=== PATIENT | female | born 1980 | race African-American/Black ===

== ENCOUNTER 2019-06-13 15:16 | Emergency (ER) | payer SELFPAY ==
[~2019-06-13] VITALS: Ht 157.5 cm; Wt 72.6 kg
[2019-06-13 15:18] VITALS: BP 134/84
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
[2019-06-13] MEDS ORDERED: DiphenhydrAMINE 50mg/ml Inj IM ONE (16:15)
[2019-06-13] MEDS ORDERED: Haloperidol 5mg/ml Inj IM ONE (16:15)
[2019-06-13 17:06] LABS: APPEARANCE,URINE TURBID; BILIRUBIN, URINE NEGATIVE (NEGATIVE); GLUCOSE, URINE (UA) NEGATIVE (NEGATIVE); KETONES,URINE 1+ (NEGATIVE); LEUKOCYTE ESTERASE ,URINE NEGATIVE (NEGATIVE); NITRITE,URINE NEGATIVE (NEGATIVE); PH,URINE 8 (4.5-8.0); PROTEIN,URINE 3+ (NEGATIVE); UROBILINOGEN,URINE NORMAL MG/DL (0.0-1.0)
[2019-06-13 17:08] LABS: COLOR,URINE YELLOW
[2019-06-13 19:20] VITALS: BP 134/84
--- NOTE | 2019-06-13 19:20 | NUR ---
ED Nurse Note: Pt cleared by ERMD for discharge. DC instructions was given and explained to pt and verbalized understanding of teachings. All medical deviecs such as ID band removed. Pt is AAO x4, ambulatory and left with all personal belongings. Pt was offered a placement but refused. Snacks and weather appropriate clothes are provided
== END 2019-06-13 19:20 | disposition home or self-care (01) ==
LOC: EDBD 15:16 → EMR 17:20
DX: Z04.71 Encounter for examination and observation following alleged adult physical abuse (principal); F12.10 Cannabis abuse, uncomplicated; F15.10 Other stimulant abuse, uncomplicated; F16.10 Hallucinogen abuse, uncomplicated; Z88.1 Allergy status to other antibiotic agents
CPT/HCPCS: 80307; 81003; 81025; 87086; 87181; 96372; 99283; J1200; J1630

== ENCOUNTER 2020-05-26 22:53 | Emergency (ER) | payer MEDICAID ==
[~2020-05-26] VITALS: Ht 167.6 cm; Wt 99.8 kg
[2020-05-26 22:56] VITALS: BP 141/95
[2020-05-26 23:00] VITALS: BP 135/90
--- NOTE | 2020-05-26 23:10 | NUR ---
ED Nurse Note: PT walked in from home, walks with a steady gait, vitals are stable on RA. Pt is axox4 but is exhibiting very bizzare behavior. She is co bilateral foot pain and blisters. her feet are dry on assesment. She took off both shoes and threw them in the garbage and is demanding new shoes. She took off her clothes and asked the RN to throw them away. When the RN asked why, she said lawandaaue they were dirty. She is looking through all the drawers in the room. Will continue plan of care.
[2020-05-26] MEDS ORDERED: CLOTRIMAZOLE15 GM TOPIC (23:13)
--- NOTE | 2020-05-26 23:15 | NUR ---
ED Nurse Note: Gave pt clothes appropriate for the weather. Gave rosi cevallos MD
--- NOTE | 2020-05-26 23:18 | NUR ---
ER DISCHARGE NOTE: Patient is cleared to be discharged per ERMD, pt is aox4, on room air, with stable vital signs. pt was given dc and prescription instructions, pt was able to verbalize understanding, pt id band removed. pt is able to ambulate with steady gait. pt took all belongings.
--- NOTE | 2020-05-26 23:38 | Emergency Room Report ---
History of Present Illness General Chief Complaint: General Complaint Source: Patient Present Illness HPI Patient is a 39-year-old female presents for bilateral foot itchiness. Reports having some increased discoloration to her toes. Had been using topical iodine to the area. Denies any fever. States is been present for several years. No recent trauma. Denies any past medical history. 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 COVID-19 Screening: Negative COVID-19 COVID-19 Testing Source: [facility] Patient History Past Medical History: see triage record Now: No Reviewed Nursing Documentation: PMH: Agreed; PSxH: Agreed Nursing Documentation-PMH Past Medical History: No Stated History Review of Systems All Other Systems: negative except mentioned in HPI Physical Exam Vital Signs Date Time Temp Pulse Resp B/P (MAP) Pulse Ox O2 Delivery O2 Flow Rate FiO2 05/26/20 22:56 98.2 98 20 141/95 (110) 98 Room Air General Appearance: well appearing, no apparent distress, alert, GCS 15, obese Head: normocephalic, atraumatic ENT: hearing grossly normal, normal voice Neck: full range of motion, supple Respiratory: lungs clear, normal breath sounds, no respiratory distress, speaking full sentences Gastrointestinal: normal inspection Musculoskeletal: normal inspection, normal range of motion Neurologic: alert, motor strength/tone normal, retail worker III-XII nml as tested, oriented x3, normal gait Psychiatric: normal inspection, mood/affect normal Skin: other - Increased skin thickening and rash to both feet slight yellowing of the toenails. Medical Decision Making Diagnostic Impression: Primary Impression: Tinea pedis ER Course Patient presented for bilateral foot pain. Differential diagnosis include was not limited to fungal infection, eczema, contact dermatitis among others. Patient has a benign exam and does not appear to require any imaging or laboratory testing at this time. Patient's exam is consistent with a fungal infection. Patient is given prescription for topical antifungal medications. Does not appear to have any need for acute intervention in the emergency department. She was given return precautions. She advised to return if worse. The patient is advised to follow up with primary care doctor in 1-2 days. Patient is advised to return if any worsening condition or if any changes in status that are concerning. This report is dictated with [employer] pyrotechnic assembler software which may occasionally lead to discrepancies related to use of this software. Last Vital Signs Date Time Temp Pulse Resp B/P (MAP) Pulse Ox O2 Delivery O2 Flow Rate FiO2 05/26/20 23:20 98.3 90 16 135/87 96 Room Air Status: improved Disposition: HOME, SELF-CARE Condition: Stable Scripts Clotrimazole* (LOTRIMIN*) 15 Gm Cream..g. 1 APPLIC TOPIC TWICE A DAY, #30 GM Prov: Yovani Brito MD 05/26/20 Referrals: NON PHYSICIAN (PCP) Patient Instructions: Athlete's Foot, [id number] Additional Instructions: Follow up with your doctor for recheck. Return if worse. Yovani Brito MD May 26, 2020 23:38
== END 2020-05-26 23:33 | disposition home or self-care (01) ==
LOC: EMR 23:17
DX: B35.3 Tinea pedis (principal); Z88.8 Allergy status to other drugs, medicaments and biological substances; E66.9 Obesity, unspecified
CPT/HCPCS: 99282